=== PATIENT | male | born 1985 | race Caucasian/White ===

== ENCOUNTER 2020-05-09 10:38 | Emergency (ER) | payer MEDICARE, MEDICAID, SELFPAY ==
[2020-05-09 10:45] VITALS: BP 117/66; PULSE 78; RESP 16; TEMP 37.2; BMI 25.8
--- NOTE | 2020-05-09 11:02 | ECG_ITS ---
Test Reason : STROKE PROTOCOL Blood Pressure : / mmHG Vent. Rate : 063 BPM Atrial Rate : 063 BPM P-R Int : 142 ms QRS Dur : 096 ms QT Int : 416 ms P-R-T Axes : 027 030 031 degrees QTc Int : 425 ms Normal sinus rhythm Normal ECG When compared with ECG of 05-NOV-2004 03:03, Nonspecific T wave abnormality now evident in Inferior leads QT has lengthened Referred By: Duyen Rahman Electronically Signed By:Arnoldo Tirado
--- NOTE | 2020-05-09 11:09 | CT_ITS ---
EXAMINATION: CT HEAD WITHOUT CONTRAST (STROKE PROTOCOL) CLINICAL INFORMATION: Stroke protocol. right leg numbness/weakness COMPARISON: 09/16/2009 TECHNIQUE: Contiguous axial imaging was performed from the skull base to vertex without intravenous administration of contrast. This CT examination was performed using dose optimization techniques as appropriate, variously including the following: *Automated exposure control *Adjustment of mA and/or kV according to patient size (this includes techniques or standardized protocols for targeted exams where dose is matched to indication/reason for exam; i.e. extremities or head) *Use of iterative reconstruction technique DLP: 716 mGy-cm FINDINGS: There is no intracranial hemorrhage, hematoma, or extra-axial fluid collection. The ventricles are normal in size. There is no hydrocephalus, edema, or mass effect. The rizo-white matter differentiation appears symmetric. There is no acute infarct or mass lesion. The calvarium appears intact. There is no pneumocephalus or orbital emphysema. The visualized sinuses and middle ears and mastoid air cells show no significant mucosal thickening. There are no air-fluid levels. CT/CT head for stroke IMPRESSION: No acute intracranial pathology. This critical result was discussed with MEGAN Myrick at 11:40 AM on 05/09/2020. It was ascertained that the content and urgency of the report was understood at the time of direct communication.
--- NOTE | 2020-05-09 11:13 | ED_ITS ---
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 Reports his leg feels ?heavy.? Denies any dizziness, lightheadedness, changes in vision, jaw pain, chest pain, shortness of breath, palpitations, any symptoms, back pain, recent IV drug use, recent trauma or falls or any other symptoms complaints or concerns at this time. MD Complaint: focal weakness, numbness and difficulty walking Onset (ago): hour(s) (Since 06:30) Duration: constant Location: RLE Migration: none Severity: moderate Quality: tingling, numbness and other (Heavy sensation) Relieving factors: none Exacerbating factors: movement Associated symptoms: denies other symptoms Related Data Allergies Allergy/AdvReac Type Severity Reaction Status Date / Time No Known Allergies Allergy Mild NONE Unverified 12/25/19 15:36 Review of Systems Review of Systems: Constitutional : No Fever, No Chills, No Night Sweats, No Fatigue, No Malaise ENT/Mouth : No Ear Pain, No Nasal Congestion, No Sinus Pain, No sore throat, No Rhinorrhea Eyes: No Eye Pain, No Swelling, No Redness, No Foreign Body, No Discharge, No Vision Changes Cardiovascular : No Chest Pain, No SOB, No Dyspnea on Exertion, No Orthopnea, No Palpitations Respiratory : No Cough, No Sputum, No Wheezing, No Dyspnea Gastrointestinal : No Nausea, No Vomiting, No Diarrhea, No Constipation, No abdominal Pain, No Hematochezia, No Melena Genitourinary : No Dysuria, No Urinary Frequency, No Urinary Incontinence, No Urgency, No Flank Pain Musculoskeletal : No joint pain, No Myalgias Skin : No lacerations Neuro : + Focal weakness, + Numbness, + Paresthesias, No Loss of Consciousness, No Dizziness, No Headache Yes all other systems are reviewed and are negative [facility] Past Medical History Attestation statement: The following information was validated with the patient. Medical History History of intravenous drug abuse Social History Social History Smoking Status: Current every day smoker Any prior treatment program specific to substance use: Yes (methadone) Advance Directives: No Advance Directives Information Provided: Yes Physical Exam Vital Signs: Vital Signs: Last Vital Signs Temp 98.3 F 05/09/20 11:36 Pulse 75 05/09/20 11:36 Resp 14 05/09/20 11:36 BP 107/71 05/09/20 11:36 Pulse Ox 96 05/09/20 11:36 Body Mass Index 25.8 Vital signs have been reviewed as normal and appeared to be correct. Blood pressure normal. Heart rate normal. Respiration rate normal. Temperature normal. Oxygen saturation normal. Appearance: Alert. Oriented X3. No acute distress. Head: Normal external exam. Normocephalic. Atraumatic. Able to rotate head bilaterally. Eyes: PERRLA. EOMI. No nystagmus noted. Conjunctiva and sclera normal. Eyelids normal. Corneal reflex normal. ENT: EAC normal. TM's Normal. Hearing normal. Pharynx normal. Uvula midline. tongue midline. Moist mucous membranes. No trismus noted. No drooling noted. No muffled voice noted. No nystagmus noted. Neck: Normal inspection. Neck supple. FROM. No adenopathy. Trachea midline. Thyroid Normal. No meningeal signs. No neck mass noted. CVS: Normal heart rate and rhythm. Heart sound normal. No murmurs noted. Pulses normal throughout. Respiratory: No respiratory distress. Painless inspiration. Breath sounds normal. No wheezes/rales/rhonchi noted. Chest nontender. No accessory muscle usage noted or decreased air movement noted. Abdomen: Soft and nontender. Bowel sounds normal in all 4 quadrants. No distention noted. No organomegaly noted. No visible injury noted. Back: No CVA tenderness. Full range of motion noted. No obvious deformities, or edema. Mild para-spinal muscular tenderness from lumbar region to coccyx. Full ROM in back and lower extremities. 5/5 strength hip extension/flexion, abduction, adduction. Mild Lumbar pain with hip flexion against resistance. Straight leg raise test negative on right; Straight leg raise test negatve on left; Reflexes normal ankle and knee bilaterally; EHL motor strength normal bilaterally. No rashes/lesion/induration/fluctuance or signs of infection noted. Skin: Skin warm and dry. Normal skin color. Normal skin turgor. No rashes/lesions/lacerations noted. Extremities: No lower extremity edema. Extremities exhibit normal range of motion. Extremities nontender. Able to shrug shoulders bilaterally and keep up against resistance. Neuro: Oriented X 3. No motor deficit. No sensory deficit. Reflexes normal. Moving all extremities. No focal motor deficits. Cranial nerves II-XI intact bilaterally. Facial strength normal. Normal cognition. Speech normal. When gait is tested patient reports the right leg feels heavy he does not drag the leg but he also does not move it as rapidly as the left leg. Otherwise Strength 5/5 throughout. No pronator drift. No tremor noted. No fasciculations noted. No rigidity noted. Muscle tone normal throughout. No asterixis noted. [id number] test normal. Heel to garcia test normal. Does not sway with eyes open. Romberg test negative. Rapid alternating movement upper extremity normal. Rapid alternating movement lower extremity normal. Hand drop from overhead Misses face. NIHSS score 1. 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 Reports his leg feels ?heavy.? - on exam patient is alert and oriented x3. Not in any acute distress. Vitals are within normal limits. Has mild weakness to the right lower extremity. NIH SS score 1 at this time. - Concern for CVA vs epidural abscess vs neuropathy - Plan: STROKE PROTOCOL= Labs, CXR, CT scan of brain, MRI of brain without contrast, MRI of lumbar spine without contrast, EKG, Xray of Right Hip/knee/ankle then re-evaluate. Reevaluation(s) Reevaluation #1: - multiple nurses attempted to obtain the patient's blood draw although patient is now adamantly refusing all blood draws and any futher imaging including MRI of brain and lumbar spine and he reports that he does not want any further evaluation and treatment and he wants to leave against medical advice. Patient is now walking with a normal steady gait. I explained to him that he can possibly be having a stroke at this time, could possibly have a epidural abscess, could possibly or have stroke or stay permanently disabled and despite this conversation he wants against medical advice I tried to convince him to stay for further evaluation treatment although he got very rude and angry and started swearing and putting on his clothes and walking out of the emergency department. - will DC all labs and imaging. - I received a call from [facility] about the CT scan of the brain which was within normal limits no acute processes noted. Will submit patient to leave against medical advice at this time. Time: 11:42 [facility] - Weakness Medical Records Attestation: I reviewed the patient's medical records. Lab Data Attestation: I reviewed the patient's lab results. Labs: Lab Results 05/09/20 05/09/20 Range/Units 11:14 11:18 POC Glucose 69 70 (60-115) mg/dL Imaging Data CT scan - head: Attestation: I personally reviewed and interpreted this imaging study as follows: Radiologist's impression: FINDINGS: There is no intracranial hemorrhage, hematoma, or extra-axial fluid collection. The ventricles are normal in size. There is no hydrocephalus, edema, or mass effect. The rizo-white matter differentiation appears symmetric. There is no acute infarct or mass lesion. The calvarium appears intact. There is no pneumocephalus or orbital emphysema. The visualized sinuses and middle ears and mastoid air cells show no significant mucosal thickening. There are no air-fluid levels. CT/CT head for stroke IMPRESSION: No acute intracranial pathology. This critical result was discussed with MEGAN Myrick at 11:40 AM on 05/09/2020. It was ascertained that the content and urgency of the report was understood at the time of direct communication. ECG Data Attestation: I personally reviewed and interpreted this ECG as follows: ECG interpretation date: 05/09/20 ECG interpretation time: 11:30 Interpretation: Normal sinus rhythm with a ventricular rate of 63 with a normal OR interval normal QRS duration normal QT/QTC interval. No acute ischemic changes noted. Similar compared to prior EKG 11/05/2004 Critical Care Time Critical Care Time Critical Care Time: Yes Total Critical Care Time: 60 Attestation: I personally attest to this time spent taking care of the patient Discharge Plan Discharge Clinical Impression: Right leg weakness, Paresthesia of right leg Patient Disposition: Left Against Medical Advice Instructions: Against Medical Advice (ED)
[2020-05-09 11:22] LABS: Glucose, Whole Blood 69 mg/dL (60-115)
[2020-05-09 11:22] LABS: Glucose, Whole Blood 70 mg/dL (60-115)
[2020-05-09 11:36] VITALS: BP 107/71; PULSE 75; RESP 14; TEMP 36.8; O2SAT 96
--- NOTE | 2020-05-09 11:52 | PC.NURSE ---
Pt refused IV and lab draws and then became agitated about his care stating that he doesn't need all of this . He then refused MRI and any further workup. The MEGAN Geller at bedside explained to the patient in the presence of this RN that the patient may be having a serious medical emergency and that he risks being permanently paralyzed if he leaves. The patient continued to get dressed and left AMA.
[2020-05-10 08:11] LABS: Prothrombin Time Whole Bld POC 13.5 sec (11.1-13.5); ~PT, ~INR - Anti Coag Clinic 1.1 (0.9-1.1)
== END 2020-05-09 11:57 | disposition left against medical advice (07) ==
PROVIDERS: Emergency Provider Emergency Medicine; PCP Internal Medicine
DX: R20.2 Paresthesia of skin (principal); R53.1 Weakness; M79.661 Pain in right lower leg; R29.701 NIHSS score 1; F11.20 Opioid dependence, uncomplicated; F17.200 Nicotine dependence, unspecified, uncomplicated; Z71.6 Tobacco abuse counseling
CPT/HCPCS: 70450; 82947; 85610; 93005; 99284; 99291